=== PATIENT | female | born 1950 | race Asian ===

== ENCOUNTER 2022-02-03 10:09 | Outpatient (CLI) | payer MEDICARE, OTHER ==
--- NOTE | 2022-02-03 15:54 | MRI Report ---
PROCEDURE: SHOULDER WO - RT INDICATIONS: ROTATOR CUFF TEAR TECHNIQUE: Noncontrast oblique coronal T2 fast spin echo with fat saturation, oblique sagittal T1 spin echo and T2 fast spin echo with fat saturation, axial T1 spin echo and T2 fast spin echo with fat saturation t hrough the shoulder. COMPARISON: None. FINDINGS: Image quality: Excellent. Rotator cuff: There is mild T2 signal diffusely throughout the supraspinatus and infraspinous tendons at the humeral insertion sites, indicating tendinopathy. Superimposed high-grade intrasubstance and articular surface tearing of the anterior supraspinatus tendon at the humeral insertion site measurin g roughly 7 mm anteroposterior. Infraspinatus, subscapularis, and teres minor tendons are intact. Bones and bursae: No bone marrow contusions or fractures. Mild glenohumeral and acromioclavicular gallito int degeneration. The acromion demonstrates conventional anatomy, without an os acromiale. Moderate subacromial/subdeltoid bursal fluid is present. Capsule and soft tissues: Diffuse degenerative fraying of the glenoid labrum. The long head of the bi ceps tendon demonstrates normal location and morphology. The rotator interval appears normal, withou t fibrosis. The coracohumeral ligament is normal in thickness. IMPRESSION: 1. High-grade tearing of the supraspinatus tendon, superimposed on tendinopathy. 2. Subacromial bursitis. 3. Acromioclavicular and glenohumeral joint osteoarthritis. 4. Diffuse degenerative fraying of the glenoid labrum. Reviewed by: Jeannie Waldron MD on 02/03/2022 2:53 PM [place] Approved by: Jeannie Waldron MD on 02/03/2022 2:53 PM [place] Station ID: [id number]
== END 2022-02-03 10:10 | disposition home or self-care (01) ==
LOC: DI 10:09
PROVIDERS: ATTEND Orthopaedic Surgery
DX: M75.101 Unspecified rotator cuff tear or rupture of right shoulder, not specified as traumatic (principal); M75.51 Bursitis of right shoulder; M19.011 Primary osteoarthritis, right shoulder

== ENCOUNTER 2022-08-01 10:08 | Emergency (ER) | payer MEDICARE, OTHER ==
[2022-08-01 10:47] LABS: BASOPHILS % (AUTO) 0.2 %; EOSINOPHILS % (AUTO) 0.1 %; HCT - HEMATOCRIT 41.8 % (37.0-47.0); HGB - HEMOGLOBIN 14.1 g/dL (12.0-16.0); LYMPHOCYTES # (AUTO) 0.8 10^3/uL (1.5-3.5); LYMPHOCYTES % (AUTO) 7.5 %; MEAN CORPUSCULAR HEMOGLOBIN 31.5 pg (27.0-31.0); MEAN CORPUSCULAR HGB CONC 33.7 g/dL (32.0-36.0); MEAN CORPUSCULAR VOLUME 93.5 fL (81.0-99.0); MEAN PLATELET VOLUME 8.6 fL (7.9-10.8); MONOCYTES # (AUTO) 0.4 10^3/uL (0.0-1.0); MONOCYTES % (AUTO) 4.3 %; NEUTROPHILS # (AUTO) 8.7 10^3/uL (1.5-6.6); NEUTROPHILS % (AUTO) 87.6 %; PLT - PLATELET COUNT 190 10^3/uL (130-450); RED BLOOD COUNT 4.47 10^6/uL (4.20-5.40); RED CELL DISTRIBUTION WIDTH 11.3 % (12.0-15.0)
--- NOTE | 2022-08-01 11:14 | ED Physician Documentation ---
History of Present Illness - Stated complaint Stated Complaint: DIZZINESS/NAUSEA - Chief complaint Chief Complaint: Neuro - Additonal information Additional information: 72-year-old female presents emergency department for evaluation of vertigo and nausea. Reports that she woke up yesterday morning and had a sensation of the room spinning. Anytime she turns her head to the left or the right she would feel that the horizon was moving vertically. She has vomited several times. The symptoms would last usually a few seconds up to a few minutes. Denies any loss of balance. Historically has occasionally had vertigo although not for t his prolonged. She denies any chest pain. Denies any cardiac or stroke history. Does have a history of osteoporosis for which she takes Fosamax. She does endorse daily cannabis as well as 112 ounce beer daily. Review of Systems Constitutional: denies: Fever Eyes: denies: Loss of vision, Decreased vision, Photophobia Ears: denies: Loss of hearing, Ear pain, Tinnitus/ringing Nose: reports: Reviewed and negative Cardiac: reports: Reviewed and negative Respiratory: reports: Reviewed and negative GI: reports: Reviewed and negative : reports: Reviewed and negative PD PAST MEDICAL HISTORY - Past Medical History Past Medical History: Yes Cardiovascular: None Respiratory: None Neuro: None Endocrine/Autoimmune: None GI: None [employer]: Breast cancer : None HEENT: None Psych: None Musculoskeletal: Osteoporosis Derm: None - Past Surgical History Past Surgical History: Yes /[employer]: Mastectomy - Present Medications Home Medications: Ambulatory Orders Medication Instructions Recorded Confirmed Alendronate Sodium 35 mg PO Q7D 08/01/22 08/01/22 Ondansetron Odt [Zofran] 4 mg TL Q6H PRN #10 tablet 08/01/22 - Allergies Allergies/Adverse Reactions: Allergies Allergy/AdvReac Type Severity Reaction Status Date / Time No Known Drug Allergies Allergy Verified 08/01/22 10:24 - Social History Does the pt smoke?: No Smoking Status: Never smoker Does the pt drink ETOH?: No Does the pt have substance abuse?: Yes Substance Use and Type: Marijuana - Immunizations Immunizations are current?: Yes PD ED PE NORMAL - General General: Alert and oriented X 3, No acute distress - HEENT HEENT: Atraumatic, Ears normal, Moist mucous membranes, Pharynx benign - Neck Neck: Supple, no meningeal sign - Cardiac Cardiac: RRR, No murmur - Respiratory Respiratory: No respiratory distress, Clear bilaterally - Neuro Neuro: Alert and oriented X 3, senior it specialist 2-12 intact, No motor deficit, No sensory deficit, Normal speech, Other (No nystagmus elicited. Unable to elicit vertigo with Nilson-Hallpike. Normal gait. Normal heel toe, normal finger-nose.) Eye Opening: Spontaneous Motor: Obeys Commands Verbal: Oriented GCS Score: 15 - Psych Psych: Normal mood Results - Vitals Vitals: Vital Signs - 24 hr 08/01/22 08/01/22 08/01/22 10:21 11:22 12:12 Temperature 36.8 C Heart Rate 72 72 70 Respiratory 20 16 18 Rate Blood Pressure 115/76 131/86 H 121/76 O2 Saturation 100 100 100 Oxygen O2 Source Room air - EKG (time done) 1022 EKG releavant findings:: EKG personally interpreted by author of this note. Relevant findings are: Rate: Rate (enter#) (70) Rhythm: NSR [place]: Normal Intervals: Normal VA QRS: LVH Ischemia: Normal ST segments Compare to prior EKG: Old EKG unavailable Computer interpretation: Agree with computer - Labs Labs: Laboratory Tests 08/01/22 08/01/22 08/01/22 10:36 10:36 10:36 WBC 10.0 RBC 4.47 Hgb 14.1 Hct 41.8 MCV 93.5 MCH 31.5 H MCHC 33.7 RDW 11.3 L Plt Count 190 MPV 8.6 Neut # (Auto) 8.7 H Lymph # (Auto) 0.8 L [place] # (Auto) 0.4 Eos # (Auto) 0.0 Baso # (Auto) 0.0 Absolute Nucleated RBC 0.00 Nucleated RBC % 0.0 Sodium 131 L Potassium 3.6 Chloride 97 L Carbon Dioxide 21 Anion Gap 13.0 BUN 16 Creatinine 0.5 Estimated GFR (MDRD) 121 Glucose 78 Calcium 8.3 L Total Bilirubin 4.5 H AST 28 ALT 21 Alkaline Phosphatase 50 Troponin I High Sens 4.5 Total Protein 7.0 Albumin 4.3 Globulin 2.7 Albumin/Globulin Ratio 1.6 Lipase 34 - Rads (name of study) angio head Relevant Findings:: Final report received (Unremarkable CT angio of the brain without large vessel occlusion, aneurysm or vascular malformation. Atrophy and chronic ischemic change without intracranial hemorrhage or mass effect) angio neck Relevant Findings:: Final report received (Unremarkable CT angiogram of the neck without atherosclerotic stenosis. Incidental 1.8 cm left thyroid nodule. Consider follow-up ultrasound.) PD Medical Decision Making - ED course Complexity details: reviewed results, re-evaluated patient, considered differential, d/w patient, d/w family ED course: 72-year-old female who has no history of hypertension, HI or CVA presents the emergency department for evaluation of vertigo and nausea. Reports that since yesterday morning when she wakes up she finds that she has a sensation of the room spinning especially when she turns her head. It is bilateral but most dominant especially on the left side. She has no tinnitus. No diplopia. She has a remote history of something similar in the past but not this severe. Today in the emergency department on presentation she appears remarkably well. She denies that she had dizziness at the time of my exam. Her vital signs were without acute worrisome abnormality fever, tachycardia or hypotension. Her neurologic exam including cerebral cranial nerves as well as cerebellar exam were entirely normal. I did do the [place]-Hallpike at the bedside and did not induce any dizziness. CBC and electrolytes were obtained as well as a high-sensitivity troponin. Per my interpretation no acute worrisome findings are noted though there is a mildly low sodium of 131. No previous for comparison but I do not believe that is clinically contributing to her symptoms. Her CBC is without worrisome anemia. A troponin was negative. EKG was without ischemic findings per my interpretation. However given the age I did obtain CT angios of the head and neck to help rule out any significant stenosis or posterior basilar arterial deficiencies. Per the interpretation of the radiologist CT angios were Negative for findings of acute intracranial blood flow deficits. There was an incidental finding made of a left thyroid nodule. Here in the ER the patient was given a liter of IV fluids as well as Zofran and and she has remained symptom-free while in the emergency department. I suspect she likely has a peripheral vertigo given her exam today as well as the associated lewis with turning her head. I am going to discharge her with a prescription for Zofran. She was taught how to do the Kavon maneuver at the bedside. She will follow closely with PCP. I did advise her to have an outpatient ultrasound completed of the thyroid nodule. The usual emergent return precautions for worsening symptoms was discussed Departure - Departure Disposition: 01 Home, Self Care Clinical Impression: Vertigo, Left thyroid nodule, Hyponatremia Condition: Stable Record reviewed to determine appropriate education?: Yes Instructions: ED Vertigo Unspecified Prescriptions: Ondansetron Odt [Zofran] 4 mg TL Q6H PRN #10 tablet PRN Reason: Nausea / Vomiting Comments: Bernadette you were seen today in the emergency department because you had developed some dizziness and nausea that began yesterday morning. You found that this was worse when you turn your head. Today at the bedside your neurological exam was entirely normal however given your age we did do CT angiograms of your head and neck. There were no findings to suggest stroke, aneurysm stenosis or decreased blood flow through the vessels. There was an incidental finding made of a left 1.8 cm thyroid nodule. This should be ultrasounded as an outpatient to ensure that it is not a worrisome nodule or early cancer. Please discuss this with your ED doctor. We did obtain an EKG, CBC and electrolytes today. The only markable finding was that of a mildly low sodium of 131. I do not believe that this is contributing to your symptoms today. A little extra table salt with food can be helpful. I sent a prescription for Zofran to the [facility] in [place]. This is a nausea medicine that you can use if you develop the nausea again. If you find that you have dizziness that is worse when you turn your head I recommend that you try the Kavon maneuver as shown at the bedside. If you find that your symptoms or not improving, you have any fainting episodes, chest pain or shortness of air then please return immediately to the ER.
[2022-08-01] MEDS ORDERED: ONDANSETRON 4 MG/2 ML VIAL IVP STA (11:19)
[2022-08-01] MEDS ORDERED: SODIUM CHLORIDE 0.9% 1,000 ML IV STA (11:19)
[2022-08-01 11:34] LABS: ALBUMIN 4.3 g/dL (3.2-5.5); ALBUMIN/GLOBULIN RATIO 1.6 (1.0-2.2); BILIRUBIN,TOTAL 4.5 mg/dL (0.2-1.0); CALCIUM 8.3 mg/dL (8.5-10.3); CREATININE 0.5 mg/dL (0.4-1.0); POTASSIUM 3.6 mmol/L (3.5-5.0)
--- NOTE | 2022-08-01 11:53 | XRAY Report ---
PROCEDURE: Chest 1 View X-Ray INDICATIONS: Chest pain TECHNIQUE: One view of the chest was acquired. COMPARISON: None. FINDINGS: Surgical changes and devices: None. Lungs and pleura: No pleural effusions or pneumothorax. Lungs are clear. Mediastinum: Mediastinal contours appear normal. Heart size is normal. Bones and chest wall: No suspicious bony lesions. Overlying soft tissues appear unremarkable. IMPRESSION: No acute radiographic abnormality. Reviewed by: Catarino Bolton MD on 08/01/2022 11:52 AM PDT Approved by: Catarino Bolton MD on 08/01/2022 11:52 AM PDT Station ID: [id number]
[2022-08-01] MEDS ORDERED: iohexoL-300 100 ML VIAL ONE (11:56)
--- NOTE | 2022-08-01 12:42 | CT Report ---
PROCEDURE: CT angiogram brain with contrast INDICATIONS: vertigo bilateral CONTRAST: 80ml Omnipaque 300 TECHNIQUE: Precontrast 4.5 mm thick angled axial sections acquired from the foramen magnum to the vertex. Afte r the administration of intravenous contrast, 1 mm thick sections acquired through the [place] of [place] is. Postcontrast 4.5 mm thick sections then re-acquired from the foramen magnum to the vertex. 3max [id number] (MIP) and/or volume rendering reformats were acquired of the central intrac ranial vasculature. For radiation dose reduction, the following was used: automated exposure contro l, adjustment of mA and/or kV according to patient size. COMPARISON: None FINDINGS: Image quality: Excellent. Anterior circulation: Intracranial internal carotid arteries are normal in size and flow. The flow within the paired anterior cerebral arteries is normal and symmetric. The flow within the middle cer ebral arteries is normal and symmetric. The anterior communicating artery is seen. No aneurysms are seen. Posterior circulation: Left vertebral artery dominance. Diminutive right vertebral artery terminates in the posterior inferior cerebellar artery. Normal basilar artery Flow within the posterior cerebr al arteries is normal and symmetric. No aneurysms are seen. CSF spaces: Ventricles are normal in size and shape. Basal cisterns are patent. No extra-axial flu id collections. Brain: No midline shift. No intracranial bleeds or masses. Christina-white matter interface appears int act. Senescent calcification noted basal ganglia. Mild atrophy and white matter chronic ischemic murray ge Skull and face: Calvarium and facial bones appear intact, without suspicious lesions. Sinuses: Visualized sinuses and mastoids are clear. IMPRESSION: Unremarkable CT angiogram of the brain without large vessel occlusion, aneurysm or vascular malformat ion. Atrophy and chronic ischemic change without intracranial hemorrhage or mass effect Reviewed by: Ronald Morse MD on 08/01/2022 11:41 AM [facility] Approved by: Ronald Morse MD on 08/01/2022 11:41 AM [place] Station ID: [id number]
--- NOTE | 2022-08-01 12:45 | CT Report ---
PROCEDURE: CT angiogram neck with contrast INDICATIONS: vertigo, bilateral CONTRAST: 80ml Omnipaque 300 TECHNIQUE: After the administration of intravenous contrast, 1.5 mm axial sections acquired from the aortic arch to the [place]. maximum intensity projection (MIP) and/or volume rendering reformats were then performed. For radiation dose reduction, the following was used: automated exposure control, a djustment of mA and/or kV according to patient size. COMPARISON: None. FINDINGS: Image quality: Excellent. Carotid system: The great vessels demonstrate a conventional anatomy as they arise from the aortic a rch. The origins of the common carotid arteries appear patent. The common carotid arteries demonstr ate normal calibers and courses. The bifurcation regions appear normal bilaterally. The internal ca rotid arteries demonstrate normal caliber and course. Posterior circulation: The origins of the vertebral arteries appear patent. Left vertebral artery do minance The more superior portions of the vertebral arteries demonstrate normal course and caliber. They join to form a normal appearing basilar artery. Soft tissues: Visualized neck soft tissues demonstrate no suspicious abnormalities. 1.8 cm right th yroid nodule noted Bones: No suspicious bony lesions. Visualized cervical spine appears normally aligned. IMPRESSION: Unremarkable CT angiogram of the neck without atherosclerotic stenosis Incidental 1.8 cm left thyroid nodule. Consider follow-up ultrasound. The estimate of stenosis included in the report of the imaging study was calculated using the NASCET method Reviewed by: Ronald Morse MD on 08/01/2022 11:43 AM [facility] Approved by: Ronald Morse MD on 08/01/2022 11:43 AM [facility] Station ID: [id number]
[2022-08-01 13:09] VITALS: BP 120/85
[2022-08-01] MEDS ORDERED: iohexoL-300 100 ML VIAL IVP ONE (13:26)
== END 2022-08-01 13:08 | disposition home or self-care (01) ==
LOC: ED 10:08
DX: R42 Dizziness and giddiness (principal); E04.1 Nontoxic single thyroid nodule; E87.1 Hypo-osmolality and hyponatremia
CPT/HCPCS: 36415; 70496; 70498; 71045; 80053; 83690; 84484; 85025; 93005; 96374; 99284; Q9967

== ENCOUNTER 2022-11-27 14:20 | Outpatient (CLI) | payer MEDICARE, OTHER ==
--- NOTE | 2022-11-27 17:21 | XRAY Report ---
PROCEDURE: Foot 3 View LT INDICATIONS: LT FOOT PAIN TECHNIQUE: 3 views of the foot were acquired. COMPARISON: None. FINDINGS: Bones: No fractures or dislocations. No suspicious bony lesions. Calcaneal pitch is 22.8 degrees Soft tissues: No suspicious soft tissue calcifications or masses. IMPRESSION: 1. No acute bony abnormality. If pain persists with conservative management, consider repeat radiogra phs in 10-14 days or cross-sectional imaging. 2. Normal calcaneal pitch. Reviewed by: Leidy Gomes MD on 11/27/2022 5:20 PM PDT Approved by: Leidy Gomes MD on 11/27/2022 5:20 PM PDT Station ID: [id number]
== END 2022-11-27 14:21 | disposition home or self-care (01) ==
LOC: DI 14:20
PROVIDERS: ATTEND Podiatrist
DX: M79.672 Pain in left foot (principal)